=== PATIENT | female | born 1955 | race Caucasian/White ===

== ENCOUNTER 2022-02-13 18:42 | Inpatient (IN) | payer MEDICAID ==
[~2022-02-13] VITALS: Ht 154.9 cm; Wt 81.0 kg
[2022-02-13] MEDS ORDERED: ACETAMINOPHEN 325 MG TAB PO PRN (20:30)
[2022-02-13] MEDS ORDERED: hydrALAZINE HCL 10 MG TAB PO PRN (20:30)
[2022-02-13] MEDS ORDERED: HYDROcodone-ACET 5/325MG TAB PO PRN (20:30)
[2022-02-13] MEDS ORDERED: NITROGLYCERIN 0.4 MG SL TAB SL PRN (20:45)
[2022-02-13] MEDS ORDERED: MORPHINE SULFATE INJ 2 MG/ml SYRG IV PRN (20:45)
[2022-02-13] MEDS ORDERED: ONDANSETRON HCL 4 MG/2 ML VIAL IV PRN (20:45)
[2022-02-13] MEDS ORDERED: DEXTROSE (50%) 50ML SYRG IV PRN (21:15)
[2022-02-13 21:56] VITALS: BP 176/74
[2022-02-13] MEDS ORDERED: ATORVASTATIN 20 MG TAB PO SCH (22:00)
[2022-02-13] MEDS: ACCU-CHEK COMFORT CURVE STRIP VI SCH (22:00)
[2022-02-13] MEDS ORDERED: ATEN-60 PO (22:14)
[2022-02-13] MEDS ORDERED: HYDR50TA15 PO (22:15)
[2022-02-13] MEDS ORDERED: INSU1INJ19 SC (22:15)
[2022-02-13] MEDS ORDERED: METF-370 PO (22:16)
[2022-02-13] MEDS ORDERED: REPA1TAB5 OR (22:17)
[2022-02-13] MEDS: FAMOTIDINE 20 MG TAB PO SCH (23:37)
[2022-02-13 23:46] VITALS: BP 139/63
[2022-02-14] MEDS: InsuLIN REG 1unit/0.01ml Soln (100units/ml) SC SCH ×4 (00:11→17:00)
[2022-02-14 04:30] VITALS: BP 155/71
[2022-02-14] MEDS: ACCU-CHEK COMFORT CURVE STRIP VI SCH ×3 (05:50→17:00)
[2022-02-14 06:06] LABS: Basophils # (auto) 0 10 ^3/uL (0-0.2); Basophils % (auto) 0.7 % (0.0-2.0); Eosinophils # (auto) 0.1 10 ^3/uL (0-0.8); Eosinophils % (auto) 1.9 % (0.0-7.0); Hemoglobin 11.7 g/dL (12.2-16.2); Lymphocytes # (auto) 1.3 10 ^3/uL (0.4-5.4); Lymphocytes % (auto) 35.1 % (10.0-50.0); Mean Corpuscular Hgb Conc. 33.4 g/dL (32.0-36.0); Mean Corpuscular Volume 89.8 fL (80.0-100.0); Monocytes # (auto) 0.3 10 ^3/uL (0-1.3); Monocytes % (auto) 8.1 % (0.0-12.0); Neutrophils % (auto) 54.2 % (37.0-80.0); Nucleated Red Blood Cells % 0.1 %; Red Cell Distribution Width 14.7 % (11.8-14.3); White Blood Cell 3.7 10^3/uL (4.4-10.8)
[2022-02-14 06:27] LABS: INR 1.01 (0.9-1.15); Partial Thromboplastin Time 28.8 sec (24.6-33.4)
[2022-02-14 06:52] LABS: BUN/Creatinine Ratio 17.9; Calcium 8.4 mg/dL (8.5-10.1); Potassium 3.8 mmol/L (3.5-5.1)
[2022-02-14] MEDS: FAMOTIDINE 20 MG TAB PO SCH (08:13)
[2022-02-14 09:00] VITALS: BP 164/77
[2022-02-14] MEDS ORDERED: ASPirin-EC 81 mg tab PO SCH (10:00)
[2022-02-14] MEDS ORDERED: SODIUM CHLORIDE 0.9% 1,000 ML IV SCH (12:45)
[2022-02-14 13:00] VITALS: BP 158/63
[2022-02-14] MEDS ORDERED: IODIXANOL 320MG/ML 100ML BTL IV ONE (16:44)
[2022-02-14] MEDS ORDERED: LIDOCAINE 2%HCL (LOCAL ANESTH.) INJ 20ML MDV ONE (16:44)
[2022-02-14] MEDS ORDERED: ANGIOMAX 250 MG VIAL IV ONE (16:49)
[2022-02-14] MEDS ORDERED: VERAPAMIL 2.5MG/ML INJ 2ML VIAL IV ONE (16:49)
[2022-02-14] MEDS ORDERED: HEPARIN SODIUM (PORCINE) 5000 UNITS/ML 1ML VIAL ONE (16:49)
[2022-02-14] MEDS ORDERED: MIDAZOLAM HCL 2MG/2ML 2ml VIAL (1mg/ml) ONE (16:50)
[2022-02-14] MEDS ORDERED: fentaNYL CITRATE 100 MCG/2 ML VL ONE (16:50)
[2022-02-14] MEDS ORDERED: ATEN-60 PO (17:55)
[2022-02-14] MEDS ORDERED: HYDR50TA15 PO ×2 (17:55→17:57)
[2022-02-14] MEDS ORDERED: ENAL10TA13 PO (17:55)
[2022-02-14] MEDS ORDERED: METF-370 PO (17:55)
[2022-02-14] MEDS ORDERED: LISI20TA28 PO (17:57)
[2022-02-14] MEDS ORDERED: ASPI-543 PO (17:57)
[2022-02-14 18:42] VITALS: BP 164/77
== END 2022-02-14 20:49 | disposition home or self-care (01) | DRG 192 ==
LOC: TELE-WESTW 20:38 → UNDOADMIN 21:22
PROVIDERS: ADMIT Internal Medicine; ATTEND Internal Medicine
PROC: B211YZZ Fluoroscopy of Multiple Coronary Arteries using Other Contrast (ICD-10-PCS; principal; 2022-02-14)
DX: R07.9 Chest pain, unspecified (principal); I25.110 Atherosclerotic heart disease of native coronary artery with unstable angina pectoris; E11.9 Type 2 diabetes mellitus without complications; E66.01 Morbid (severe) obesity due to excess calories; I10 Essential (primary) hypertension; E78.5 Hyperlipidemia, unspecified; Z68.33 Body mass index [BMI] 33.0-33.9, adult; Z20.822 Contact with and (suspected) exposure to COVID-19
CPT/HCPCS: 36415; 71045; 80048; 80061; 82962; 83036; 84484; 84702; 85025; 85610; 85730; 86850; 86870; 86880; 86900; 86901; 86905; 86906; 86971; 87081; 93306; 93454; 99152; G0378; J1815; J2250; Q9967

== ENCOUNTER 2022-10-22 09:49 | Inpatient (IN) | payer MEDICAID ==
[~2022-10-22] VITALS: Ht 154.9 cm; Wt 95.0 kg
[~2022-10-22 09:49] MED LIST: ASPI-543 PO; ATEN-60 PO; HYDR50TA15 PO; INSU1INJ19 SC; LISI20TA28 PO; METF-370 PO; REPA1TAB5 OR
[2022-10-22 11:35] LABS: Basophils # (auto) 0 10 ^3/uL (0-0.2); Basophils % (auto) 0.7 % (0.0-2.0); Eosinophils # (auto) 0 10 ^3/uL (0-0.8); Eosinophils % (auto) 0.7 % (0.0-7.0); Hematocrit 31.2 % (36.0-46.0); Hemoglobin 10.2 g/dL (12.2-16.2); Lymphocytes # (auto) 0.9 10 ^3/uL (0.4-5.4); Lymphocytes % (auto) 21.5 % (10.0-50.0); Mean Corpuscular Hemoglobin 26.4 pg (28.0-32.0); Mean Corpuscular Hgb Conc. 32.7 g/dL (32.0-36.0); Mean Corpuscular Volume 80.8 fL (80.0-100.0); Monocytes # (auto) 0.4 10 ^3/uL (0-1.3); Monocytes % (auto) 9.3 % (0.0-12.0); Neutrophils # (auto) 2.7 10 ^3/uL (1.6-8.6); Neutrophils % (auto) 67.8 % (37.0-80.0); Nucleated Red Blood Cells % 0.2 %; Red Blood Cells 3.86 10^6/uL (4.0-5.20)
[2022-10-22 11:37] LABS: Red Cell Distribution Width 20.5 % (11.8-14.3)
[2022-10-22 11:51] LABS: Albumin 2.8 g/dL (3.4-5.0); Calcium 8.6 mg/dL (8.5-10.1); Potassium 4.7 mmol/L (3.5-5.1)
[2022-10-22 11:53] LABS: BUN/Creatinine Ratio 27.8 (10.0-20.0)
[2022-10-22 11:56] LABS: Bilirubin, Total 0.5 mg/dL (0.2-1.0)
[2022-10-22] MEDS ORDERED: DEXTROSE (50%) 50ML SYRG IV PRN (19:00)
[2022-10-22] MEDS: InsuLIN REG 1unit/0.01ml Soln (100units/ml) SC SCH (23:00)
[2022-10-22] MEDS: hydrALAZINE HCL 25 MG TAB PO SCH (23:00)
[2022-10-22] MEDS: ACCU-CHEK COMFORT CURVE STRIP VI SCH (23:00)
[2022-10-23] MEDS: ACCU-CHEK COMFORT CURVE STRIP VI SCH ×4 (07:14→22:00)
[2022-10-23] MEDS: InsuLIN REG 1unit/0.01ml Soln (100units/ml) SC SCH ×4 (07:17→22:48)
[2022-10-23] MEDS: hydrALAZINE HCL 25 MG TAB PO SCH ×3 (07:23→22:47)
[2022-10-23] MEDS ORDERED: ONDANSETRON HCL 4 MG/2 ML VIAL IV PRN (08:00)
[2022-10-23] MEDS ORDERED: NITROGLYCERIN 0.4 MG SL TAB SL PRN (08:00)
[2022-10-23] MEDS ORDERED: ACETAMINOPHEN 325 MG TAB PO PRN (08:00)
[2022-10-23] MEDS ORDERED: D5W/SOD CHLO 0.9% 1,000 ML IV SCH (08:00)
[2022-10-23] MEDS ORDERED: MORPHINE SULFATE INJ 2 MG/ml SYRG IV PRN ×2 (08:00)
[2022-10-23] MEDS: ATENOLOL 25 MG TAB PO SCH (10:00)
[2022-10-23] MEDS: LISINOPRIL 20 MG TAB PO SCH (10:36)
[2022-10-23] MEDS: DOCUSATE SOD 100 MG CAP PO SCH ×2 (10:36→22:45)
[2022-10-23] MEDS: CYCLOBENZAPRINE HCL 10 MG TAB PO SCH ×2 (14:13→22:45)
[2022-10-23 22:00] VITALS: BP 140/61
[2022-10-23] MEDS: HYDROcodone-ACET 10/325MG TAB PO PRN (22:46)
[2022-10-23 23:41] VITALS: BP 141/62
[2022-10-24 05:00] VITALS: BP_SYST 108; BP_SYST 138; BP_DIAS 51; BP_DIAS 97
[2022-10-24] MEDS: CYCLOBENZAPRINE HCL 10 MG TAB PO SCH ×3 (06:00→21:08)
[2022-10-24] MEDS: hydrALAZINE HCL 25 MG TAB PO SCH ×3 (06:24→21:08)
[2022-10-24] MEDS: InsuLIN REG 1unit/0.01ml Soln (100units/ml) SC SCH ×4 (06:25→21:31)
[2022-10-24] MEDS: ACCU-CHEK COMFORT CURVE STRIP VI SCH ×4 (06:31→21:10)
[2022-10-24 08:41] VITALS: BP 114/51
[2022-10-24] MEDS: DOCUSATE SOD 100 MG CAP PO SCH ×2 (08:56→21:09)
[2022-10-24] MEDS: HYDROcodone-ACET 10/325MG TAB PO PRN (08:57)
[2022-10-24] MEDS: LISINOPRIL 20 MG TAB PO SCH (10:00)
[2022-10-24] MEDS: ATENOLOL 25 MG TAB PO SCH (10:00)
[2022-10-24] MEDS ORDERED: OPTISON 3ml Vial for INJ IV ONE (10:30)
[2022-10-24 13:00] VITALS: BP 130/49
[2022-10-24 17:00] VITALS: BP 149/60
[2022-10-24 22:00] VITALS: BP 107/49
[2022-10-25 05:00] VITALS: BP 127/59
[2022-10-25] MEDS: CYCLOBENZAPRINE HCL 10 MG TAB PO SCH ×3 (06:00→21:18)
[2022-10-25] MEDS: hydrALAZINE HCL 25 MG TAB PO SCH ×3 (06:38→21:18)
[2022-10-25] MEDS: ACCU-CHEK COMFORT CURVE STRIP VI SCH ×4 (06:39→22:00)
[2022-10-25] MEDS: InsuLIN REG 1unit/0.01ml Soln (100units/ml) SC SCH ×4 (06:40→21:25)
[2022-10-25 09:00] VITALS: BP 114/47
[2022-10-25] MEDS: LISINOPRIL 20 MG TAB PO SCH (10:00)
[2022-10-25] MEDS: ATENOLOL 25 MG TAB PO SCH (10:00)
[2022-10-25] MEDS: DOCUSATE SOD 100 MG CAP PO SCH ×2 (10:09→21:18)
[2022-10-25 10:17] LABS: Basophils # (auto) 0 10 ^3/uL (0-0.2); Basophils % (auto) 0.9 % (0.0-2.0); Eosinophils # (auto) 0 10 ^3/uL (0-0.8); Hemoglobin 9.3 g/dL (12.2-16.2); Neutrophils # (auto) 2.8 10 ^3/uL (1.6-8.6); Nucleated Red Blood Cells % 0.2 %
[2022-10-25 10:19] LABS: Eosinophils % (auto) 0.8 % (0.0-7.0); Lymphocytes # (auto) 0.9 10 ^3/uL (0.4-5.4); Lymphocytes % (auto) 20.9 % (10.0-50.0); Mean Corpuscular Hgb Conc. 33.4 g/dL (32.0-36.0); Mean Corpuscular Volume 80.8 fL (80.0-100.0); Monocytes # (auto) 0.5 10 ^3/uL (0-1.3); Monocytes % (auto) 12.7 % (0.0-12.0); Neutrophils % (auto) 64.7 % (37.0-80.0); Red Blood Cells 3.46 10^6/uL (4.0-5.20); White Blood Cell 4.3 10^3/uL (4.4-10.8)
[2022-10-25 10:35] LABS: Red Cell Distribution Width 20.4 % (11.8-14.3)
[2022-10-25 10:37] LABS: BUN/Creatinine Ratio 39.7 (10.0-20.0); Calcium 7.9 mg/dL (8.5-10.1); Potassium 4.1 mmol/L (3.5-5.1)
[2022-10-25 10:54] LABS: INR 1.03 (0.9-1.15)
[2022-10-25 13:00] VITALS: BP 120/48
[2022-10-25] MEDS ORDERED: LIDOCAINE 4MG/ML IV SOLN 500 ML IV SCH (13:15)
[2022-10-25] MEDS ORDERED: GABAPENTIN 400 MG CAP PO ONE (13:15)
[2022-10-25] MEDS ORDERED: ACETAMINOPHEN 500 MG TAB PO ONE (13:15)
[2022-10-25] MEDS ORDERED: ceFAZolin 1GM/50ML 100 ML IV ONE (13:16)
[2022-10-25] MEDS ORDERED: ONDANSETRON HCL 4 MG/2 ML VIAL ONE (13:30)
[2022-10-25] MEDS ORDERED: SODIUM CHLORIDE LOCK 10 ML ONE ×2 (13:30→15:50)
[2022-10-25] MEDS ORDERED: GLYCOPYRROLATE 0.2 MG/ML 1ML VIAL ONE (13:30)
[2022-10-25] MEDS ORDERED: DexAMETHasone SOD PHOS 10MG/1ML VIAL INJ ONE (13:30)
[2022-10-25] MEDS ORDERED: KETAMINE HCL 10 ML ONE (13:30)
[2022-10-25] MEDS ORDERED: LIDOCAINE 2% (LOCAL ANESTH.) PF 5ml SDV ONE (13:30)
[2022-10-25] MEDS ORDERED: fentaNYL CITRATE 100 MCG/2 ML VL ONE (13:30)
[2022-10-25] MEDS ORDERED: PROPOFOL 10 MG/ML 20 ML IV ONE ×4 (13:31→17:40)
[2022-10-25] MEDS ORDERED: ACETAMINOPHEN IV 100 ML IV ONE (13:50)
[2022-10-25] MEDS ORDERED: ACETAMINOPHEN IV 1000 MG/100ML (10MG/ML) IV ONE (14:00)
[2022-10-25] MEDS: MAGNESIUM SULFATE 1GM/100ML 100 ML IV SCH ×2 (14:00→18:07)
[2022-10-25] MEDS ORDERED: LIDOCAINE 2% JELLY 11ml (GLYDO) ONE (14:16)
[2022-10-25] MEDS ORDERED: SODIUM CHLORIDE LOCK 20 ML ONE ×2 (15:05→18:14)
[2022-10-25] MEDS ORDERED: ePHEDrine SULFATE 50 MG/ML AMP ONE (15:50)
[2022-10-25] MEDS ORDERED: SUGAMMADEX 200mg/2ml Vial (100MG/ML) IV ONE (16:16)
[2022-10-25] MEDS ORDERED: ONDANSETRON HCL 4 MG/2 ML VIAL IV PRN ×2 (18:00→18:30)
[2022-10-25] MEDS ORDERED: ACETAMINOPHEN 325 MG TAB PO PRN (18:00)
[2022-10-25] MEDS ORDERED: ceFAZolin 1GM/50ML 50 ML IV SCH (18:00)
[2022-10-25] MEDS ORDERED: NITROGLYCERIN 0.4 MG SL TAB SL PRN (18:00)
[2022-10-25] MEDS ORDERED: MORPHINE SULFATE INJ 2 MG/ml SYRG IV PRN (18:00)
[2022-10-25] MEDS ORDERED: PHENYLEPHRINE HCL 10 MG/ML VL ONE (18:14)
[2022-10-25] MEDS ORDERED: fentaNYL CITRATE 100 MCG/2 ML VL IV PRN (18:30)
[2022-10-25] MEDS ORDERED: NALOXONE HCL 0.4 MG/ML VIAL IV PRN (18:30)
[2022-10-25] MEDS ORDERED: hydrALAZINE HCL 20 MG/ML VL IV PRN (18:30)
[2022-10-25] MEDS ORDERED: FLUMAZENIL 0.1 MG/ML INJ 10ML MDV IV PRN (18:30)
[2022-10-25] MEDS ORDERED: LABETALOL HCL 5 MG/ML 4ML SYRINGE IV PRN (18:30)
[2022-10-25] MEDS ORDERED: HYDROmorphone HCL 2 MG/ML VL/or syr IV PRN (18:30)
[2022-10-25] MEDS: ePHEDrine SULFATE 50 MG/ML AMP IV PRN ×3 (18:44→19:37)
[2022-10-25] MEDS ORDERED: VASOPRESSIN 20 UNIT/ML ONE (19:41)
[2022-10-25 20:25] VITALS: BP 108/58
[2022-10-25] MEDS: D5W/SOD CHL 0.45% 1,000 ML IV SCH (20:30)
[2022-10-25] MEDS: HYDROcodone-ACET 10/325MG TAB PO PRN (21:19)
[2022-10-25 22:00] VITALS: BP 107/45
[2022-10-25] MEDS: ceFAZolin 1GM/50ML 50 ML IV SCH (23:00)
[2022-10-26] MEDS: MORPHINE SULFATE INJ 2 MG/ml SYRG IV PRN ×2 (02:42→17:52)
[2022-10-26] MEDS: D5W/SOD CHL 0.45% 1,000 ML IV SCH ×2 (04:10→15:33)
[2022-10-26 05:00] VITALS: BP 109/47
[2022-10-26] MEDS: hydrALAZINE HCL 25 MG TAB PO SCH ×3 (05:38→21:40)
[2022-10-26] MEDS: CYCLOBENZAPRINE HCL 10 MG TAB PO SCH ×3 (05:38→21:40)
[2022-10-26] MEDS: ACCU-CHEK COMFORT CURVE STRIP VI SCH ×4 (05:50→21:38)
[2022-10-26] MEDS: InsuLIN REG 1unit/0.01ml Soln (100units/ml) SC SCH ×4 (05:50→21:45)
[2022-10-26] MEDS: ceFAZolin 1GM/50ML 50 ML IV SCH (06:54)
[2022-10-26 09:00] VITALS: BP 104/55
[2022-10-26] MEDS: DOCUSATE SOD 100 MG CAP PO SCH ×2 (10:30→21:40)
[2022-10-26] MEDS: LISINOPRIL 20 MG TAB PO SCH (10:31)
[2022-10-26] MEDS: ATENOLOL 25 MG TAB PO SCH (10:31)
[2022-10-26 10:47] LABS: Basophils # (auto) 0 10 ^3/uL (0-0.2); Eosinophils # (auto) 0 10 ^3/uL (0-0.8); Hemoglobin 8.5 g/dL (12.2-16.2); Mean Corpuscular Hemoglobin 26.7 pg (28.0-32.0); Monocytes # (auto) 0.7 10 ^3/uL (0-1.3); Nucleated Red Blood Cells % 0.1 %
[2022-10-26 10:49] LABS: Basophils % (auto) 0.6 % (0.0-2.0); Eosinophils % (auto) 0.3 % (0.0-7.0); Hematocrit 25.5 % (36.0-46.0); Lymphocytes % (auto) 13.8 % (10.0-50.0); Mean Corpuscular Hgb Conc. 33.2 g/dL (32.0-36.0); Mean Corpuscular Volume 80.5 fL (80.0-100.0); Neutrophils # (auto) 5.6 10 ^3/uL (1.6-8.6); Neutrophils % (auto) 75.3 % (37.0-80.0); Red Blood Cells 3.17 10^6/uL (4.0-5.20); White Blood Cell 7.4 10^3/uL (4.4-10.8)
[2022-10-26 11:18] LABS: BUN/Creatinine Ratio 29.4 (10.0-20.0); Calcium 8.1 mg/dL (8.5-10.1); Potassium 4.2 mmol/L (3.5-5.1)
[2022-10-26 13:00] VITALS: BP 112/93
[2022-10-26] MEDS: HYDROcodone-ACET 10/325MG TAB PO PRN (14:18)
[2022-10-26 17:00] VITALS: BP 124/50
[2022-10-26 20:00] VITALS: BP 106/58
[2022-10-26 22:53] VITALS: BP 106/58
[2022-10-27 05:00] VITALS: BP 109/27
[2022-10-27] MEDS: ACCU-CHEK COMFORT CURVE STRIP VI SCH ×4 (05:53→22:10)
[2022-10-27] MEDS: InsuLIN REG 1unit/0.01ml Soln (100units/ml) SC SCH ×4 (05:53→22:09)
[2022-10-27] MEDS: hydrALAZINE HCL 25 MG TAB PO SCH ×3 (07:53→22:02)
[2022-10-27] MEDS: CYCLOBENZAPRINE HCL 10 MG TAB PO SCH ×3 (07:53→22:03)
[2022-10-27 09:00] VITALS: BP 103/46
[2022-10-27] MEDS: DOCUSATE SOD 100 MG CAP PO SCH ×2 (09:52→22:00)
[2022-10-27] MEDS: LISINOPRIL 20 MG TAB PO SCH (09:52)
[2022-10-27] MEDS: ATENOLOL 25 MG TAB PO SCH (09:53)
[2022-10-27] MEDS: D5W/SOD CHL 0.45% 1,000 ML IV SCH ×3 (10:00→20:59)
[2022-10-27 13:00] VITALS: BP 101/39
[2022-10-27 17:00] VITALS: BP 106/41
[2022-10-27] MEDS: HYDROcodone-ACET 10/325MG TAB PO PRN (20:56)
[2022-10-27 22:00] VITALS: BP 106/44
[2022-10-28 05:00] VITALS: BP 106/45
[2022-10-28] MEDS: hydrALAZINE HCL 25 MG TAB PO SCH ×3 (05:36→21:51)
[2022-10-28] MEDS: D5W/SOD CHL 0.45% 1,000 ML IV SCH ×2 (05:36→16:00)
[2022-10-28] MEDS: CYCLOBENZAPRINE HCL 10 MG TAB PO SCH ×3 (05:37→21:53)
[2022-10-28] MEDS: InsuLIN REG 1unit/0.01ml Soln (100units/ml) SC SCH ×4 (06:44→21:45)
[2022-10-28] MEDS: ACCU-CHEK COMFORT CURVE STRIP VI SCH ×4 (06:44→21:54)
[2022-10-28 09:00] VITALS: BP 125/49
[2022-10-28] MEDS: LISINOPRIL 20 MG TAB PO SCH (09:30)
[2022-10-28] MEDS: DOCUSATE SOD 100 MG CAP PO SCH ×2 (09:30→21:53)
[2022-10-28] MEDS: ATENOLOL 25 MG TAB PO SCH (09:31)
[2022-10-28 12:45] VITALS: BP 111/48
[2022-10-28 16:50] VITALS: BP 108/45
[2022-10-28] MEDS: MORPHINE SULFATE INJ 2 MG/ml SYRG IV PRN (17:45)
[2022-10-28 22:00] VITALS: BP 105/48
[2022-10-29] MEDS: D5W/SOD CHL 0.45% 1,000 ML IV SCH ×3 (02:00→15:08)
[2022-10-29 05:00] VITALS: BP 111/48
[2022-10-29] MEDS: hydrALAZINE HCL 25 MG TAB PO SCH ×3 (05:33→23:07)
[2022-10-29] MEDS: CYCLOBENZAPRINE HCL 10 MG TAB PO SCH ×3 (05:38→23:07)
[2022-10-29] MEDS: InsuLIN REG 1unit/0.01ml Soln (100units/ml) SC SCH ×4 (05:39→23:40)
[2022-10-29] MEDS: ACCU-CHEK COMFORT CURVE STRIP VI SCH ×4 (05:43→23:05)
[2022-10-29 08:00] VITALS: BP 102/47
[2022-10-29] MEDS: LISINOPRIL 20 MG TAB PO SCH (10:00)
[2022-10-29] MEDS: ATENOLOL 25 MG TAB PO SCH (10:00)
[2022-10-29] MEDS: DOCUSATE SOD 100 MG CAP PO SCH ×2 (10:33→22:00)
[2022-10-29 12:00] VITALS: BP 108/47
[2022-10-29 16:00] VITALS: BP 108/48
[2022-10-29 22:00] VITALS: BP 123/63
[2022-10-29] MEDS: MORPHINE SULFATE INJ 2 MG/ml SYRG IV PRN (23:38)
[2022-10-30 05:00] VITALS: BP 101/51
[2022-10-30] MEDS: ACCU-CHEK COMFORT CURVE STRIP VI SCH ×3 (07:08→18:37)
[2022-10-30] MEDS: hydrALAZINE HCL 25 MG TAB PO SCH ×3 (07:49→21:35)
[2022-10-30] MEDS: CYCLOBENZAPRINE HCL 10 MG TAB PO SCH ×3 (07:50→21:35)
[2022-10-30] MEDS: InsuLIN REG 1unit/0.01ml Soln (100units/ml) SC SCH ×3 (07:53→18:39)
[2022-10-30] MEDS: D5W/SOD CHL 0.45% 1,000 ML IV SCH ×2 (08:00→18:00)
[2022-10-30 09:00] VITALS: BP 113/50
[2022-10-30] MEDS: DOCUSATE SOD 100 MG CAP PO SCH ×2 (09:24→21:39)
[2022-10-30] MEDS: LISINOPRIL 20 MG TAB PO SCH (09:29)
[2022-10-30] MEDS: ATENOLOL 25 MG TAB PO SCH (09:29)
[2022-10-30 13:00] VITALS: BP 94/41
[2022-10-30 17:00] VITALS: BP 103/46
[2022-10-30] MEDS: HYDROcodone-ACET 10/325MG TAB PO PRN (21:36)
[2022-10-30 22:43] VITALS: BP 103/44
[2022-10-31] MEDS: ACCU-CHEK COMFORT CURVE STRIP VI SCH ×5 (00:35→22:05)
[2022-10-31] MEDS: InsuLIN REG 1unit/0.01ml Soln (100units/ml) SC SCH ×5 (00:39→22:08)
[2022-10-31] MEDS: HYDROcodone-ACET 10/325MG TAB PO PRN ×3 (01:44→21:57)
[2022-10-31 05:16] VITALS: BP 113/45
[2022-10-31] MEDS: D5W/SOD CHL 0.45% 1,000 ML IV SCH ×2 (05:16→15:35)
[2022-10-31] MEDS: CYCLOBENZAPRINE HCL 10 MG TAB PO SCH ×3 (07:07→21:57)
[2022-10-31] MEDS: hydrALAZINE HCL 25 MG TAB PO SCH ×3 (07:10→21:57)
[2022-10-31 09:00] VITALS: BP 108/51
[2022-10-31] MEDS: DOCUSATE SOD 100 MG CAP PO SCH ×2 (10:50→21:57)
[2022-10-31] MEDS: ATENOLOL 25 MG TAB PO SCH (10:51)
[2022-10-31] MEDS: LISINOPRIL 20 MG TAB PO SCH (10:51)
[2022-10-31 13:00] VITALS: BP 104/50
[2022-10-31 17:00] VITALS: BP 114/44
[2022-10-31 22:00] VITALS: BP 117/44
[2022-11-01] MEDS: D5W/SOD CHL 0.45% 1,000 ML IV SCH (01:59)
[2022-11-01 05:00] VITALS: BP 118/50
[2022-11-01] MEDS: hydrALAZINE HCL 25 MG TAB PO SCH ×2 (05:14→14:00)
[2022-11-01] MEDS: CYCLOBENZAPRINE HCL 10 MG TAB PO SCH ×2 (05:15→14:00)
[2022-11-01] MEDS: HYDROcodone-ACET 10/325MG TAB PO PRN (05:15)
[2022-11-01] MEDS: ACCU-CHEK COMFORT CURVE STRIP VI SCH ×3 (06:15→17:00)
[2022-11-01] MEDS: InsuLIN REG 1unit/0.01ml Soln (100units/ml) SC SCH ×3 (06:16→17:00)
[2022-11-01 09:22] VITALS: BP 119/47
[2022-11-01] MEDS: DOCUSATE SOD 100 MG CAP PO SCH (09:40)
[2022-11-01] MEDS: ATENOLOL 25 MG TAB PO SCH (10:00)
[2022-11-01] MEDS: LISINOPRIL 20 MG TAB PO SCH (10:00)
[2022-11-01 12:00] VITALS: BP 124/57
[2022-11-01 16:00] VITALS: BP 102/51
[2022-11-01 17:21] VITALS: BP 120/60
== END 2022-11-01 18:18 | disposition home health service (06) | DRG 304 ==
LOC: ER 09:49 → OVERFLOW 10-23 07:58 → CENTRAL 10-23 21:50 → TELE-CENTR 10-25 22:42
PROVIDERS: ADMIT Orthopaedic Surgery; ATTEND Orthopaedic Surgery
PROC: 00NY0ZZ Release Lumbar Spinal Cord, Open Approach (ICD-10-PCS; 2022-10-25)
PROC: 01NB0ZZ Release Lumbar Nerve, Open Approach (ICD-10-PCS; 2022-10-25)
PROC: 01NR0ZZ Release Sacral Nerve, Open Approach (ICD-10-PCS; 2022-10-25)
PROC: 4A11X4G Monitoring of Peripheral Nervous Electrical Activity, Intraoperative, External Approach (ICD-10-PCS; 2022-10-25)
PROC: 0SG30AJ Fusion of Lumbosacral Joint with Interbody Fusion Device, Posterior Approach, Anterior Column, Open Approach (ICD-10-PCS; principal; 2022-10-25 14:53)
DX: M48.062 Spinal stenosis, lumbar region with neurogenic claudication (principal); E11.41 Type 2 diabetes mellitus with diabetic mononeuropathy; E66.01 Morbid (severe) obesity due to excess calories; E78.5 Hyperlipidemia, unspecified; I10 Essential (primary) hypertension; I25.10 Atherosclerotic heart disease of native coronary artery without angina pectoris; M43.16 Spondylolisthesis, lumbar region; Z68.36 Body mass index [BMI] 36.0-36.9, adult; M51.36 Other intervertebral disc degeneration, lumbar region; M79.661 Pain in right lower leg
CPT/HCPCS: 36415; 71045; 72131; 72148; 76000; 80048; 80053; 82962; 84484; 85025; 85610; 85730; 86850; 86900; 86901; 93005; 93306; 93926; 96372; 97110; 97116; 97163; 97530; G0378; J0131; J0690; J1100; J1815; J2001; J2405; J2704; Q9956

== ENCOUNTER 2022-12-08 07:31 | Inpatient (IN) | payer OTHER ==
[~2022-12-08] VITALS: Ht 160 cm; Wt 101.6 kg
[2022-12-08] VITALS (23 sets, daily range): BP systolic 51–82; BP diastolic 28–42
[~2022-12-08 07:31] MED LIST changes: +HYDR-4297 PO; -HYDR50TA15 PO; -LISI20TA28 PO; +LISI20TA56 PO
[2022-12-08] MEDS ORDERED: ETOMIDATE (2MG/ML) 20ML VIAL IV ONE ×2 (07:45→08:00)
[2022-12-08] MEDS ORDERED: ROCURONIUM 10MG/ML 10ML VIAL IV ONE ×2 (07:46→08:00)
[2022-12-08] MEDS ORDERED: fentaNYL Drip 2500mCg/250mlNS 250 ML IV ONE (07:48)
[2022-12-08] MEDS ORDERED: MIDAZOLAM DRIP 50 mg/50mL 50 ML IV ONE (07:49)
[2022-12-08] MEDS ORDERED: NOREPINEPHRINE 8 MG/250ML KIT 250 ML IV ONE (07:57)
[2022-12-08] MEDS ORDERED: MIDAZOLAM DRIP 50 mg/50mL 50 ML IV SCH (08:00)
[2022-12-08] MEDS ORDERED: fentaNYL Drip 2500mCg/250mlNS 250 ML IV SCH (08:00)
[2022-12-08] MEDS: NOREPINEPHRINE 8 MG/250ML KIT 250 ML IV SCH ×2 (08:05→18:52)
[2022-12-08 08:49] LABS: Hemoglobin 11.3 g/dL (12.2-16.2); Neutrophils # (auto) 26.9 10 ^3/uL (1.6-8.6)
[2022-12-08 08:50] LABS: Basophils # (auto) 0.3 10 ^3/uL (0-0.2); Eosinophils # (auto) 0.1 10 ^3/uL (0-0.8); Eosinophils % (auto) 0.4 % (0.0-7.0); Hematocrit 38.3 % (36.0-46.0); Lymphocytes # (auto) 3.7 10 ^3/uL (0.4-5.4); Lymphocytes % (auto) 11.5 % (10.0-50.0); Mean Corpuscular Hemoglobin 29.6 pg (28.0-32.0); Mean Corpuscular Hgb Conc. 29.6 g/dL (32.0-36.0); Mean Corpuscular Volume 100.1 fL (80.0-100.0); Monocytes # (auto) 0.9 10 ^3/uL (0-1.3); Monocytes % (auto) 2.7 % (0.0-12.0); Neutrophils % (auto) 84.4 % (37.0-80.0); Nucleated Red Blood Cells % 0.5 %; Red Blood Cells 3.83 10^6/uL (4.0-5.20)
[2022-12-08 08:52] LABS: Red Cell Distribution Width 26.3 % (11.8-14.3)
[2022-12-08 08:55] LABS: White Blood Cell 31.9 10^3/uL (4.4-10.8)
[2022-12-08 08:58] LABS: INR 2.85 (0.9-1.15)
[2022-12-08 09:16] LABS: Albumin 1.3 g/dL (3.4-5.0); Calcium 7.2 mg/dL (8.5-10.1)
[2022-12-08 09:20] LABS: BUN/Creatinine Ratio 19.2 (10.0-20.0); Bilirubin, Total 0.3 mg/dL (0.2-1.0); Total Protein 4.3 g/dL (6.4-8.2)
[2022-12-08 09:24] LABS: Partial Thromboplastin Time 82.9 sec (24.6-33.4)
[2022-12-08 09:31] LABS: Potassium 5.6 mmol/L (3.5-5.1)
[2022-12-08] MEDS ORDERED: DEXTROSE (50%) 50ML SYRG IV ONE (09:45)
[2022-12-08] MEDS ORDERED: InsuLIN REG 1unit/0.01ml Soln (100units/ml) IV ONE (09:45)
[2022-12-08] MEDS ORDERED: SODIUM BICARBONATE 8.4% INJ 50ML SYRINGE IV ONE (09:45)
[2022-12-08] MEDS ORDERED: SODIUM ZIRCONIUM CYCL 10 GM PAK PO ONE (09:45)
[2022-12-08] MEDS ORDERED: CALCIUM GLUC 1,000mg/50ml-NS 50 ML IV ONE (09:45)
[2022-12-08] MEDS ORDERED: ALBUTEROL SULF 2.5 MG/0.5ML(0.5%) NEB SOLN NEB ONE (09:45)
[2022-12-08] MEDS ORDERED: SODIUM BICARBONATE 8.4% INJ 50ML SYRINGE ONE (10:30)
[2022-12-08] MEDS ORDERED: PIPERACILLIN-TAZOB 3.375GM 100 ML IV ONE (10:45)
[2022-12-08] MEDS ORDERED: VANCOMYCIN 1GM/250ML 250 ML IV ONE ×2 (10:45→14:45)
[2022-12-08 11:01] LABS: Lactic Acid w/Reflex 14.4 mmol/L (0.4-2.0)
[2022-12-08] MEDS: DOPamine 1600MCG/ML D5W 250 ML IV SCH ×2 (11:55→20:45)
[2022-12-08] MEDS ORDERED: D5W 5% 1,000 ML IV ONE (12:00)
[2022-12-08] MEDS ORDERED: SODIUM CHLORIDE 0.9% 2,000 ML IV ONE (12:30)
[2022-12-08] MEDS ORDERED: SODIUM BICARBONATE 50ML VIAL 150 ML in D5W 5% 1,000 ML IV ONE (12:45)
[2022-12-08 13:07] LABS: Hemoglobin 9.7 g/dL (12.2-16.2); Mean Corpuscular Hgb Conc. 27.1 g/dL (32.0-36.0)
[2022-12-08 13:11] LABS: Basophils # (auto) 0.3 10 ^3/uL (0-0.2); Basophils % (auto) 0.6 % (0.0-2.0); Eosinophils # (auto) 0.2 10 ^3/uL (0-0.8); Eosinophils % (auto) 0.4 % (0.0-7.0); Hematocrit 35.9 % (36.0-46.0); Lymphocytes # (auto) 4.4 10 ^3/uL (0.4-5.4); Lymphocytes % (auto) 9.8 % (10.0-50.0); Mean Corpuscular Hemoglobin 29.2 pg (28.0-32.0); Monocytes # (auto) 1.4 10 ^3/uL (0-1.3); Neutrophils # (auto) 39.1 10 ^3/uL (1.6-8.6); Neutrophils % (auto) 86.2 % (37.0-80.0); Nucleated Red Blood Cells % 1.2 %; Red Blood Cells 3.33 10^6/uL (4.0-5.20); Red Cell Distribution Width 26.9 % (11.8-14.3)
[2022-12-08 13:17] LABS: BUN/Creatinine Ratio 19.8 (10.0-20.0); Calcium 7.6 mg/dL (8.5-10.1); Potassium 4.9 mmol/L (3.5-5.1)
[2022-12-08 13:18] LABS: White Blood Cell 45.3 10^3/uL (4.4-10.8)
[2022-12-08 13:26] LABS: Bilirubin, Total 0.5 mg/dL (0.2-1.0); Total Protein 3.1 g/dL (6.4-8.2)
[2022-12-08 13:46] LABS: Albumin 0.6 g/dL (3.4-5.0)
[2022-12-08] MEDS ORDERED: ALBUMIN 5% 250 ML IV ONE (14:00)
[2022-12-08] MEDS ORDERED: VASOPRESSIN 20 UNITS in SODIUM CHL 0.9% 99 ML IV SCH (14:15)
[2022-12-08] MEDS ORDERED: VANCOMYCIN PER PHARMACY 0 MG IV SCH (14:30)
[2022-12-08] MEDS ORDERED: ACETAMINOPHEN 325 MG TAB PO PRN (14:30)
[2022-12-08] MEDS ORDERED: NITROGLYCERIN 0.4 MG SL TAB SL PRN (14:30)
[2022-12-08] MEDS ORDERED: MORPHINE SULFATE INJ 2 MG/ml SYRG IV PRN (14:30)
[2022-12-08] MEDS ORDERED: PHENYLEPHRINE IV 250 ML IV SCH (15:00)
[2022-12-08] MEDS ORDERED: DEXTROSE (50%) 50ML SYRG IV PRN (15:15)
[2022-12-08] MEDS ORDERED: InsuLIN REG 1unit/0.01ml Soln (100units/ml) ONE (15:26)
[2022-12-08] MEDS ORDERED: InsuLIN R (HUMAN) 100 UNITS in SODIUM CHL 0.9% 99 ML IV SCH ×2 (15:30→17:00)
[2022-12-08] MEDS ORDERED: EPINEPHrine HCL 250 ML IV SCH (16:15)
[2022-12-08] MEDS: ACCU-CHEK COMFORT CURVE STRIP VI SCH ×5 (16:41→22:30)
[2022-12-08] MEDS ORDERED: SODIUM BICARBONATE 50ML VIAL 50 ML in SOD CHL 0.45% 1,000 ML IV ONE (17:45)
[2022-12-08] MEDS ORDERED: NOREPINEPHRINE BITARTRATE 32 MG in SODIUM CHL 0.9% 218 ML IV SCH (19:15)
[2022-12-08] MEDS ORDERED: PHENYLEPHRINE INJ 80 MG in SODIUM CHL 0.9% 242 ML IV SCH (19:15)
[2022-12-08] MEDS ORDERED: EPINEPHrine HCL INJECTION 16 MG in D5W 5% 234 ML IV SCH (19:15)
[2022-12-08] MEDS ORDERED: PIPERACILLIN-TAZOB 3.375GM 100 ML IV SCH (22:00)
[2022-12-09] MEDS ORDERED: DEXTROSE (50%) 50ML SYRG IV ONE (05:01)
[2022-12-09] MEDS ORDERED: CALCIUM CHLOR(10%) 100MG/ML 10ML SYRINGE IV ONE (05:01)
[2022-12-09] MEDS ORDERED: SODIUM BICARBONATE 8.4% INJ 50ML SYRINGE IV ONE (05:01)
== END 2022-12-09 05:02 | DRG 871 ==
LOC: ER 07:31 → EDBD 07:31 → TELE 14:33 → ICU WEST 17:15
PROVIDERS: ADMIT Nurse Practitioner Family; ATTEND Nurse Practitioner Family
PROC: 5A1935Z Respiratory Ventilation, Less than 24 Consecutive Hours (ICD-10-PCS; principal; 2022-12-08)
PROC: 0BH17EZ Insertion of Endotracheal Airway into Trachea, Via Natural or Artificial Opening (ICD-10-PCS; 2022-12-08)
PROC: 5A12012 Performance of Cardiac Output, Single, Manual (ICD-10-PCS; 2022-12-08)
DX: A41.9 Sepsis, unspecified organism (principal); J96.00 Acute respiratory failure, unspecified whether with hypoxia or hypercapnia; R65.21 Severe sepsis with septic shock; E87.20 Acidosis, unspecified; E11.65 Type 2 diabetes mellitus with hyperglycemia; I11.0 Hypertensive heart disease with heart failure; E66.01 Morbid (severe) obesity due to excess calories; I46.9 Cardiac arrest, cause unspecified; I50.9 Heart failure, unspecified; Z79.84 Long term (current) use of oral hypoglycemic drugs; Z79.899 Other long term (current) drug therapy; Z80.0 Family history of malignant neoplasm of digestive organs; Z82.49 Family history of ischemic heart disease and other diseases of the circulatory system; Z83.3 Family history of diabetes mellitus; Z85.038 Personal history of other malignant neoplasm of large intestine; Z87.11 Personal history of peptic ulcer disease; Z68.39 Body mass index [BMI] 39.0-39.9, adult
CPT/HCPCS: 31500; 36415; 36556; 36600; 51702; 70450; 71045; 80053; 82805; 82962; 83605; 83735; 83880; 84484; 85025; 85610; 85730; 87040; 87070; 87077; 87081; 87205; 92950; 93005; 94002; 94640; 96365; 96366; 96367; 96368; 96375; 99291; G0378; J0171; J1815; J2250; J2543; J7060